=== PATIENT | female | born 1935 | race Caucasian/White ===

== ENCOUNTER 2023-08-10 09:52 | Inpatient (IN) | payer MEDICARE ==
[2023-08-10] MEDS ORDERED: Senokot S 8.6-50 MG TAB PO PRN (09:55)
[2023-08-10] MEDS: Melatonin 3 MG TAB PO SCH (23:47)
[2023-08-10] MEDS: hydrOXYzine 25 MG TAB PO SCH (23:48)
[2023-08-10] MEDS: Famotidine 20 MG TAB PO SCH (23:48)
[2023-08-10] MEDS: Atorvastatin Calcium 20 MG TAB PO SCH (23:48)
[2023-08-10] MEDS: Gabapentin 100 MG CAP PO SCH (23:49)
[2023-08-10] MEDS: Acetaminophen 325 MG TAB PO PRN (23:49)
[2023-08-10] MEDS: Nitrofurantoin Monohyd/M-Cryst 100 MG CAP PO SCH (23:51)
[2023-08-11] MEDS ORDERED: Enoxaparin 40 MG (0.4 mL) SYRINGE SC SCH (09:00)
[2023-08-11 09:45] LABS: #Basophils 0.1 thou/uL (0.0-0.2); #Eosinphils 0.1 thou/uL (0.0-0.7); #Lymphocytes 2.1 thou/uL (1.20-3.40); #Monocytes 0.6 thou/uL (0.11-0.59); %Eosinophils 1.4 % (0.0-10.0); %Lymphocytes 23.4 % (21.0-51.0); %Neutrophils 67.3 % (42.0-75.0); Hematocrit 46.3 % (36.0-47.0); Hemoglobin 14.3 g/dL (12.0-16.0); Mean Corpuscular Hemoglobin 29.7 pg (27.0-31.0); Mean Platelet Volume 5.9 fL (7.4-10.4); Platelet Count 218 10x3/uL (130-400); RBC Distribution Width 11.7 % (11.5-14.5); Red Blood Cell (RBC) Count 4.83 mill/uL (4.20-5.40)
[2023-08-11] MEDS: Polyethylene Glycol 3350 17 GM Packet PO SCH (09:54)
[2023-08-11] MEDS: HYDROcodone/Acetaminophen 5/325 mg Tablet PO PRN (09:54)
[2023-08-11] MEDS: Nitrofurantoin Monohyd/M-Cryst 100 MG CAP PO SCH (09:57)
[2023-08-11] MEDS: Enoxaparin 30 MG (0.3 mL) SYRINGE SC SCH (09:58)
[2023-08-11] MEDS: Multivitamin W/ Minerals 1 TAB PO SCH (09:58)
[2023-08-11] MEDS: Famotidine 20 MG TAB PO SCH (09:58)
[2023-08-11] MEDS: Aspirin Chewable 81 MG TAB PO SCH (09:58)
[2023-08-11] MEDS: Gabapentin 100 MG CAP PO SCH (09:58)
[2023-08-11] MEDS: DULoxetine 30 MG CAP PO SCH (09:59)
[2023-08-11] MEDS: INULIN PO SCH (10:17)
[2023-08-11] MEDS: BACILLUS COAGULANS PO SCH (10:17)
[2023-08-11 14:14] LABS: ALT (SGPT) 34 U/L (8-55); AST (SGOT) 41 U/L (5-34); Alkaline Phosphatase 115 U/L (40-110); Anion Gap 18 mmol/L (10-20); BUN (Urea Nitrogen) 17 mg/dL (9.8-20.1); Bilirubin, Total 0.4 mg/dL (0.2-1.2); Calc. Creatinine Clearance 34 mL/min (70-130); Calcium 9.8 mg/dL (7.8-10.44); Carbon Dioxide 23 mmol/L (23-31); Chloride 99 mmol/L (98-107); Estimated GFR 70; Globulin 3.8 g/dL (2.4-3.5); Glucose 117 mg/dL (83-110); Potassium 3.8 mmol/L (3.5-5.1); Protein, Total 7.8 g/dL (5.8-8.1); Sodium 136 mmol/L (136-145)
[2023-08-11] MEDS: hydrOXYzine 25 MG TAB PO SCH (20:44)
[2023-08-11] MEDS: Melatonin 3 MG TAB PO SCH (20:44)
[2023-08-11] MEDS: Atorvastatin Calcium 20 MG TAB PO SCH (20:46)
[2023-08-12] MEDS: Calcium Carbonate 600 MG + Vit D TAB PO SCH (10:01)
[2023-08-12] MEDS: Megestrol Acetate 40 MG TAB PO SCH (10:01)
[2023-08-13] MEDS: Senokot S 8.6-50 MG TAB PO PRN (05:46)
[2023-08-13] MEDS: LACTOBACILLUS RHAMNOSUS PO SCH (08:31)
[2023-08-13] MEDS ORDERED: INULIN PO SCH (09:00)
[2023-08-13] MEDS ORDERED: BACILLUS COAGULANS PO SCH (09:00)
[2023-08-13] MEDS: Bisacodyl 5 MG TAB PO PRN (12:41)
[2023-08-14] MEDS: Senokot S 8.6-50 MG TAB PO SCH ×2 (10:52→20:45)
[2023-08-14] MEDS: Polyethylene Glycol 3350 17 GM Packet PO SCH (15:56)
[2023-08-15] MEDS: Enoxaparin 40 MG (0.4 mL) SYRINGE SC SCH (08:14)
[2023-08-15] MEDS: Famotidine 20 MG TAB PO SCH (08:15)
[2023-08-16] MEDS: Fleet Saline Enema 133 ML BOT PR SCH (11:04)
[2023-08-18 05:56] LABS: #Basophils 0.1 thou/uL (0.0-0.2); #Eosinphils 0.3 thou/uL (0.0-0.7); #Lymphocytes 2.1 thou/uL (1.20-3.40); #Monocytes 0.8 thou/uL (0.11-0.59); #Neutrophils 5.3 thou/uL (1.40-6.50); %Basophils 0.9 % (0.0-1.0); %Eosinophils 3.2 % (0.0-10.0); %Lymphocytes 24.5 % (21.0-51.0); %Monocytes 9.4 % (0.0-10.0); Hematocrit 38.1 % (36.0-47.0); Hemoglobin 11.9 g/dL (12.0-16.0); Mean Corpuscular HGB CONC 31.1 g/dL (32.0-36.0); Mean Corpuscular Hemoglobin 29.8 pg (27.0-31.0); Mean Corpuscular Volume 95.7 fl (78.0-98.0); Mean Platelet Volume 6.5 fL (7.4-10.4); Platelet Count 309 10x3/uL (130-400); RBC Distribution Width 12.4 % (11.5-14.5); Red Blood Cell (RBC) Count 3.99 mill/uL (4.20-5.40); White Blood Cell (WBC) Count 8.6 10x3/uL (4.8-10.8)
[2023-08-18 06:11] LABS: ALT (SGPT) 25 U/L (8-55); AST (SGOT) 24 U/L (5-34); Albumin 3.5 g/dL (3.4-4.8); Alkaline Phosphatase 109 U/L (40-110); Anion Gap 14 mmol/L (10-20); BUN (Urea Nitrogen) 13 mg/dL (9.8-20.1); Bilirubin, Total 0.3 mg/dL (0.2-1.2); Calc. Creatinine Clearance 39 mL/min (70-130); Calcium 9.1 mg/dL (7.8-10.44); Carbon Dioxide 24 mmol/L (23-31); Chloride 106 mmol/L (98-107); Estimated GFR 76; Globulin 3.4 g/dL (2.4-3.5); Glucose 94 mg/dL (83-110); Potassium 4.1 mmol/L (3.5-5.1); Protein, Total 6.9 g/dL (5.8-8.1); Sodium 140 mmol/L (136-145)
[2023-08-20] MEDS: Polyethylene Glycol 3350 17 GM Packet PO SCH (21:04)
[2023-08-21 05:37] VITALS: BMI 19.8
[2023-08-22] MEDS: Gabapentin 100 MG CAP ONE (01:49)
[2023-08-24] MEDS: Ondansetron ODT 4 MG TAB PO PRN (08:11)
[2023-08-24] MEDS: Mirtazapine 15 MG TAB PO SCH (20:38)
[2023-08-25 05:51] LABS: #Basophils 0.1 thou/uL (0.0-0.2); #Eosinphils 0.2 thou/uL (0.0-0.7); #Lymphocytes 2.4 thou/uL (1.20-3.40); #Monocytes 0.8 thou/uL (0.11-0.59); #Neutrophils 5.9 thou/uL (1.40-6.50); %Eosinophils 1.6 % (0.0-10.0); %Lymphocytes 25.4 % (21.0-51.0); %Monocytes 8.7 % (0.0-10.0); %Neutrophils 63.3 % (42.0-75.0); Hematocrit 41.7 % (36.0-47.0); Mean Corpuscular HGB CONC 31.3 g/dL (32.0-36.0); Mean Corpuscular Hemoglobin 29.8 pg (27.0-31.0); Mean Corpuscular Volume 95.3 fl (78.0-98.0); Mean Platelet Volume 6.5 fL (7.4-10.4); Platelet Count 284 10x3/uL (130-400); RBC Distribution Width 12.3 % (11.5-14.5); Red Blood Cell (RBC) Count 4.37 mill/uL (4.20-5.40); White Blood Cell (WBC) Count 9.3 10x3/uL (4.8-10.8)
[2023-08-25 06:06] LABS: ALT (SGPT) 45 U/L (8-55); AST (SGOT) 25 U/L (5-34); Albumin 3.7 g/dL (3.4-4.8); Alkaline Phosphatase 102 U/L (40-110); Anion Gap 13 mmol/L (10-20); BUN (Urea Nitrogen) 15 mg/dL (9.8-20.1); Bilirubin, Total 0.3 mg/dL (0.2-1.2); Calc. Creatinine Clearance 34 mL/min (70-130); Calcium 9.6 mg/dL (7.8-10.44); Carbon Dioxide 28 mmol/L (23-31); Chloride 104 mmol/L (98-107); Estimated GFR 65; Globulin 3.6 g/dL (2.4-3.5); Glucose 102 mg/dL (83-110); Potassium 4.4 mmol/L (3.5-5.1); Protein, Total 7.3 g/dL (5.8-8.1); Sodium 141 mmol/L (136-145)
[2023-08-26 11:22] VITALS: BP 128/76; TEMP 98.7
[2023-08-26 12:20] VITALS: BMI 19.8
== END 2023-08-26 14:50 | DRG 948 ==
LOC: NAV ACUTE 21:12
PROVIDERS: ADMIT Student in an Organized Health Care Education/Training Program; ATTEND Student in an Organized Health Care Education/Training Program
DX: R53.81 Other malaise (principal); M80.88XA Other osteoporosis with current pathological fracture, vertebra(e), initial encounter for fracture; N39.0 Urinary tract infection, site not specified; S22.089A Unspecified fracture of T11-T12 vertebra, initial encounter for closed fracture; Z68.1 Body mass index [BMI] 19.9 or less, adult; I10 Essential (primary) hypertension; E78.5 Hyperlipidemia, unspecified; R63.0 Anorexia; G89.29 Other chronic pain; Z90.49 Acquired absence of other specified parts of digestive tract; Z79.899 Other long term (current) drug therapy
CPT/HCPCS: 36415; 80053; 85025; J1650; Q0162; S0179